=== PATIENT | female | born 1990 | race Caucasian/White ===

== ENCOUNTER 2018-07-23 08:00 | Outpatient (CLI) | payer SELFPAY | END 2018-07-23 23:59 | disposition home or self-care (01) | LOC: LAB.R 08:00 | PROVIDERS: ATTEND Registered Nurse | DX: R10.2 Pelvic and perineal pain (principal) | CPT/HCPCS: 87491; 87591 ==

== ENCOUNTER 2021-06-18 18:40 | Emergency (ER) | payer OTHER ==
[2021-06-18] MEDS ORDERED: ALBUTEROL 1 PUFF INH STA (19:17)
[2021-06-18] MEDS ORDERED: predniSONE 20 MG TABLET PO STA (19:17)
--- NOTE | 2021-06-18 19:20 | ED Physician Documentation ---
History of Present Illness - Stated complaint Stated Complaint: ASTHMA,COUGH - Chief complaint Chief Complaint: Resp - Additonal information Additional information: 31-year-old active [place] female patient comes to the ER for evaluation of worsening shortness of breath and asthma. She developed a cough about 6 weeks ago. She initially had some mild congestion. She is not not run any fevers. She states that over the last few weeks she is using her albuterol multiple times a day. Whereas she had previously only used it once or twice a year. No hormone use. No tobacco use no vaping or cannabis. Fully vaccinated for COVID-19. No recent surgery immobilization. No personal history of DVT or cancer. Patient is PERC negative. Review of Systems Constitutional: denies: Fever, Chills Eyes: reports: Reviewed and negative Nose: reports: Reviewed and negative Throat: reports: Reviewed and negative Cardiac: denies: Chest pain / pressure, Palpitations, Pedal edema Respiratory: reports: Dyspnea, Cough. denies: Hemoptysis, Wheezing GI: denies: Abdominal Pain, Abdominal Swelling, Nausea : denies: Dysuria, Frequency PD PAST MEDICAL HISTORY - Past Medical History Past Medical History: Yes Cardiovascular: None Respiratory: Asthma Neuro: None Endocrine/Autoimmune: None GI: None COOKIE BREAKER: Ovarian cysts : None HEENT: None Psych: Depression, Anxiety Musculoskeletal: None Derm: None - Past Surgical History Past Surgical History: No - Present Medications Home Medications: Ambulatory Orders Medication Instructions Recorded Confirmed Albuterol Sulfate [Proair Hfa 1 - 2 puffs INH Q4H PRN 06/18/21 06/18/21 Inhaler] predniSONE [Deltasone] 40 mg PO DAILY 5 Days #8 tablet 06/18/21 - Allergies Allergies/Adverse Reactions: Allergies Allergy/AdvReac Type Severity Reaction Status Date / Time amoxicillin Allergy Hives Verified 06/18/21 18:43 ethinyl estradiol Allergy Unknown Verified 06/18/21 18:43 [From NuvaRing] etonogestrel [From NuvaRing] Allergy Unknown Verified 06/18/21 18:43 - Social History Does the pt smoke?: No Smoking Status: Never smoker Does the pt drink ETOH?: Yes Does the pt have substance abuse?: No - Immunizations Immunizations are current?: Yes PD ED PE NORMAL - General General: Alert and oriented X 3, No acute distress - HEENT HEENT: PERRL - Neck Neck: Supple, no meningeal sign - Cardiac Cardiac: RRR, No murmur, No gallop, Strong equal pulses - Respiratory Respiratory: No respiratory distress. No: Clear bilaterally (Faint scattered expiratory wheeze in the dependent lung fregoso. Room air saturations 99%.) - Abdomen Abdomen: Normal bowel sounds, Non tender, Non distended - Back Back: No CVA TTP, No spinal TTP - Derm Derm: Normal color, Warm and dry, No rash - Extremities Extremities: No deformity - Neuro Neuro: Alert and oriented X 3 Eye Opening: Spontaneous Motor: Obeys Commands Verbal: Oriented GCS Score: 15 Results - Vitals Vitals: Vital Signs - 24 hr 06/18/21 06/18/21 18:45 19:40 Temperature 36.4 C L Heart Rate 100 106 H Respiratory 18 20 Rate Blood Pressure 135/85 H O2 Saturation 99 Oxygen O2 Source Room air - Rads (name of study) cxr Radiology: Final report received PD MEDICAL DECISION MAKING - ED course Complexity details: reviewed results, considered differential, d/w patient ED course: 31-year-old female presents emergency department for evaluation of 6 weeks of cough and shortness of air. This is in the setting of history of asthma. On presentation she appears remarkably well has no distress. Room air saturations are 99%. On auscultation she did have faint bilateral expiratory wheezes. This did improve following albuterol here in the ER. Chest x-ray is without acute focal opacity. I suspect she has a mild asthma exacerbation. She was started on prednisone. Doubt PE. Patient is PERC negative. Given age and history low suspicion for ACS defer further imaging. Emergent return precautions were discussed for failure symptoms to improve. Departure - Departure Disposition: 01 Home, Self Care Clinical Impression: Asthma with exacerbation Qualifiers: Asthma severity: mild Asthma persistence: persistent Qualified Code(s): J45.31 - Mild persistent asthma with (acute) exacerbation Condition: Stable Record reviewed to determine appropriate education?: Yes Prescriptions: predniSONE [Deltasone] 40 mg PO DAILY 5 Days #8 tablet Comments: Krystal you are seen today in the emergency department for increasing shortness of breath as well as a cough for about 6 weeks. Your chest x-ray shows no pneumonia. However you do have some mild wheeze. I suspect you are having an asthma exacerbation. Your first dose of steroids was given tonight in the ER. Prescription has been sent to the [facility] in [place]. Please fill begin taking daily as directed for the next 4 days. If at any point you find that your symptoms are worsening, you have fevers higher than 102 or you are severely short of breath and please return immediately to the ER. However I would expect with the steroids and the albuterol use at home that your symptoms are getting better over the next 24 to 48 hours. We do have a COVID-19 screen pending on you. We will notify you only if the results are positive.
--- NOTE | 2021-06-18 19:38 | XRAY Report ---
PROCEDURE: Chest 1 View X-Ray INDICATIONS: COUGH SOA TECHNIQUE: One view of the chest was acquired. COMPARISON: None FINDINGS: Surgical changes and devices: Bilateral breast nipple pleural effusions.. Lungs and pleura: No pleural effusions or pneumothorax. Lungs are clear. Mediastinum: Mediastinal contours appear normal. Heart size is normal. Bones and chest wall: No suspicious bony lesions. Overlying soft tissues appear unremarkable. IMPRESSION: No acute cardiopulmonary disease process. Reviewed by: Maya Phoenix MD, PhD on 06/18/2021 7:37 PM PST Approved by: Maya Phoenix MD, PhD on 06/18/2021 7:37 PM PST Station ID: [id number]
[2021-06-18 21:14] VITALS: BP 120/79
== END 2021-06-18 21:14 | disposition home or self-care (01) ==
LOC: ED 18:40
DX: J45.31 Mild persistent asthma with (acute) exacerbation (principal); Z20.822 Contact with and (suspected) exposure to COVID-19
CPT/HCPCS: 71045; 87635; 94640; 94664; 99283; 99284; J7512